=== PATIENT | female | born 1940 | race Caucasian/White ===

== ENCOUNTER 2018-04-18 10:24 | Inpatient (IN) | payer OTHER, MEDICARE | END 2018-04-20 11:57 | disposition home or self-care (01) | LOC: TELE 04-20 11:56 → ER 10:24 → TELE 04-20 11:56 | DX: R55 Syncope and collapse (principal); R53.1 Weakness; D64.9 Anemia, unspecified; K57.90 Diverticulosis of intestine, part unspecified, without perforation or abscess without bleeding; I35.9 Nonrheumatic aortic valve disorder, unspecified; E87.8 Other disorders of electrolyte and fluid balance, not elsewhere classified ==

== ENCOUNTER 2018-05-18 22:26 | Emergency (ER) | payer OTHER ==
[~2018-05-18] VITALS: Ht 154.9 cm; Wt 52.2 kg
[~2018-05-18 22:26] MED LIST: ASPI81CH49 PO; MULT-13 OR; OMEGCAP2 OR
[2018-05-19 00:31] LABS: Basophils # (auto) 0 uL; Basophils % (auto) 0.5 % (0.0-2.0); Eosinophils # (auto) 0 uL; Eosinophils % (auto) 0.2 % (0.0-7.0); Hematocrit 37.6 % (36.0-46.0); Hemoglobin 12.7 g/dL (12.2-16.2); Lymphocytes # (auto) 0.8 uL; Lymphocytes % (auto) 10.1 % (10.0-50.0); Mean Corpuscular Hemoglobin 31.2 pg (28.0-32.0); Mean Corpuscular Hgb Conc. 33.9 g/dL (32.0-36.0); Mean Corpuscular Volume 92.1 fL (80.0-100.0); Monocytes # (auto) 0.4 uL; Monocytes % (auto) 5.7 % (0.0-12.0); Neutrophils # (auto) 6.4 uL; Neutrophils % (auto) 83.5 % (37.0-80.0); Platelet Count (auto) 145 10^3/uL (140-450); Red Blood Cells 4.08 10^6/uL (4.0-5.20); Red Cell Distribution Width 12.9 % (11.8-14.3); White Blood Cell 7.7 10^3/uL (4.4-10.8)
[2018-05-19 00:44] LABS: INR 0.93 (0.9-1.15); Partial Thromboplastin Time 25.7 sec (23.78-33.04)
[2018-05-19 01:00] LABS: Alanine Aminotransferase 14 U/L (13-56); Albumin 3.9 g/dL (3.4-5.0); Anion Gap 6 (5-15); Aspartate Aminotransferase 19 U/L (15-37); BUN/Creatinine Ratio 29.8; Blood Urea Nitrogen 31 mg/dL (7-18); Calcium 9.1 mg/dL (8.5-10.1); Carbon Dioxide 25 mmol/L (21-32); Chloride 108 mmol/L (98-107); GFR African American 66 mL/min; GFR Non-African American 55 mL/min; Glucose 118 mg/dL (74-106); Magnesium 2.4 mg/dL (1.6-2.6); Potassium 3.8 mmol/L (3.5-5.1); Sodium 139 mmol/L (136-145)
[2018-05-19 01:05] LABS: Alkaline Phosphatase 60 U/L (45-117); Bilirubin, Total 0.8 mg/dL (0.2-1.0)
[2018-05-19 01:54] LABS: Urine Bacteria NONE SEEN /hpf (None Seen); Urine Blood Negative /uL (Negative); Urine Specific Gravity 1.028 (1.001-1.035); Urine WBC 2 /hpf (0 - 5)
[2018-05-19] MEDS ORDERED: SODIUM CHLORIDE 0.9% 1,000 ML IVB ONE (07:20)
[2018-05-19] MEDS ORDERED: cefTRIAXone 1GM/50ML D5W 50 ML IV ONE (07:30)
[2018-05-19] MEDS ORDERED: PROMETHAZINE HCL 25 MG/ML 1ML IV PRN (07:30)
[2018-05-19 10:50] VITALS: BP 106/40
== END 2018-05-19 11:21 | disposition home or self-care (01) ==
LOC: ER 22:26
DX: R53.1 Weakness (principal); R11.2 Nausea with vomiting, unspecified; E86.0 Dehydration; N39.0 Urinary tract infection, site not specified; N18.9 Chronic kidney disease, unspecified; Z88.8 Allergy status to other drugs, medicaments and biological substances; Z79.82 Long term (current) use of aspirin; Z79.899 Other long term (current) drug therapy
CPT/HCPCS: 36415; 71045; 80053; 81001; 82962; 83690; 83735; 83880; 84443; 84484; 85025; 85610; 85730; 86850; 86900; 86901; 93005; 96365; 96375; 99284; J0696; J2550; J7030